=== PATIENT | male | born 1990 | race Hispanic/Latino ===

== ENCOUNTER 2019-10-01 13:52 | Emergency (ER) | payer SELFPAY ==
[2019-10-01 17:15] VITALS: BP 116/74
[2019-10-01] MEDS ORDERED: HYDROCO/APAP1 TA9 PO (17:16)
[2019-10-01] MEDS ORDERED: KEFLEX500 M1 PO (17:16)
== END 2019-10-01 17:15 | disposition home or self-care (01) | DRG 605 ==
LOC: ED 13:52
PROC: 0HQFXZZ Repair Right Hand Skin, External Approach (ICD-10-PCS; principal; 2019-10-01)
DX: S61.210A Laceration without foreign body of right index finger without damage to nail, initial encounter (principal); S62.300A Unspecified fracture of second metacarpal bone, right hand, initial encounter for closed fracture; W18.30XA Fall on same level, unspecified, initial encounter